=== PATIENT | male | born 1965 | race Caucasian/White ===

== ENCOUNTER 2016-07-01 09:51 | Inpatient (IN) | payer OTHER ==
[2016-07-01] MEDS ORDERED: HYDROcodone/APAP 5-325MG 1 EACH TAB PO STA (10:38)
[2016-07-01] MEDS ORDERED: IBUPROFEN 400 MG TAB PO STA (10:38)
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
[2016-07-01] MEDS ORDERED: HYDROmorphone 1 MG/ML 1 ML SYRINGE IM STA (12:09)
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
[2016-07-01] MEDS ORDERED: DOCUSATE 100 MG CAP PO PRN (13:48)
[2016-07-01] MEDS ORDERED: ONDANSETRON 4 MG/2 ML VIAL IVP PRN (13:48)
[2016-07-01] MEDS ORDERED: NALOXONE 0.4 MG/ML 1 ML VIAL IV PRN (13:48)
[2016-07-01] MEDS ORDERED: TEMAZEPAM 15 MG CAP PO PRN (13:48)
[2016-07-01] MEDS ORDERED: NICOTINE 21MG/24HR PATCH TRANSDERM STA (14:02)
[2016-07-01] MEDS: SODIUM CHLORIDE 0.9% 1,000 ML IV SCH ×2 (14:22→23:15)
[2016-07-01 14:36] LABS: Basophils # (A) 0.1 k/uL (0-0.2); Basophils % (A) 1 %; CH 33.4; CHCM 34.7; Eosinophils # (A) 0.4 k/uL (0-0.7); Eosinophils % (A) 5 %; HCT 47.8 % (39.0-53.0); HDW 2.41; HGB 16.1 gm/dL (13.0-17.5); Luc # (Auto) 0.17; Luc % (Auto) 2; Lymphocytes # (A) 1.8 k/uL (1.0-4.8); Lymphocytes % (A) 24 %; MCH 32.5 pg (25.0-35.0); MCHC 33.7 g/dL (31.0-37.0); MCV 96.7 fL (80.0-100.0); Mean Platelet Volume 7.8; Monocytes # (A) 0.6 k/uL (0-1.0); Monocytes % (A) 8 %; Neutrophils # (A) 4.5 k/uL (1.3-7.7); Neutrophils % (A) 61 %; RBC 4.94 m/uL (4.30-5.90); RDW 13.2 % (11.5-15.5); WBC 7.4 k/uL (3.8-10.6); WBC (Perox) 7.13
[2016-07-01 14:42] LABS: Prothrombin Time 10.5 sec (9.0-12.0)
[2016-07-01 14:45] LABS: Anion Gap 9 mmol/L; Blood Urea Nitrogen 19 mg/dL (9-20); Calcium 9.6 mg/dL (8.4-10.2); Carbon Dioxide 23 mmol/L (22-30); Chloride 109 mmol/L (98-107); Glucose 92 mg/dL (74-99); Non-African American GFR(MDRD) 55 (>60 ml/min/1.73 sqM); Potassium 5.3 mmol/L (3.5-5.1); Sodium 141 mmol/L (137-145)
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
[2016-07-01] MEDS: HYDROmorphone 1 MG/ML 1 ML SYRINGE IV PRN (16:24)
[2016-07-01] MEDS: HYDROcodone/APAP 7.5-325MG 1 EACH TAB PO PRN ×2 (17:55→23:24)
[2016-07-01] MEDS: FAMOTIDINE 20 MG TAB PO SCH (19:50)
[2016-07-02] MEDS: HYDROmorphone 1 MG/ML 1 ML SYRINGE IV PRN ×4 (02:38→20:26)
[2016-07-02] MEDS: HYDROcodone/APAP 7.5-325MG 1 EACH TAB PO PRN ×3 (05:30→14:02)
[2016-07-02] MEDS ORDERED: HYDROcodone/APAP 7.5-325MG 1 EACH TAB PO ONE (06:15)
[2016-07-02] MEDS: MELOXICAM 7.5 MG TAB PO SCH ×2 (09:05→19:19)
--- NOTE | 2016-07-02 09:31 | XR ---
EXAMINATION TYPE: XR chest 1V DATE OF EXAM: 07/02/2016 9:01 AM COMPARISON: Knees 01 July 2016 HISTORY: Preop, bilateral patellar fractures TECHNIQUE: Single frontal view of the chest is obtained. FINDINGS: There is no focal air space opacity, pleural effusion, or pneumothorax seen. The cardiac silhouette size is within normal limits. The osseous structures are intact. IMPRESSION: No acute process.
[2016-07-02] MEDS ORDERED: traMADol 50 MG TAB PO PRN (10:57)
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
[2016-07-02] MEDS: FAMOTIDINE 20 MG TAB PO SCH ×2 (14:02→20:26)
[2016-07-02] MEDS: SODIUM CHLORIDE 0.9% 1,000 ML IV SCH ×3 (17:13→20:31)
[2016-07-03] MEDS: HYDROmorphone 1 MG/ML 1 ML SYRINGE IV PRN ×7 (01:17→23:06)
[2016-07-03] MEDS: SODIUM CHLORIDE 0.9% 1,000 ML IV SCH ×4 (05:15→20:11)
[2016-07-03] MEDS ORDERED: DEXAMETHASONE SOD PHOSPHATE 10 MG/ML 1 ML VIAL IV ONE (06:47)
[2016-07-03] MEDS ORDERED: SCOPOLAMINE 1.5MG/72HR PATCH TRANSDERM ONE (06:47)
[2016-07-03] MEDS ORDERED: HYDROmorphone 1 MG/ML 1 ML SYRINGE IVP PRN (06:47)
[2016-07-03] MEDS ORDERED: LACTATED RINGERS 1,000 ML IV SCH (06:47)
[2016-07-03] MEDS: FAMOTIDINE 20 MG TAB PO SCH ×2 (07:07→17:55)
[2016-07-03 11:02] LABS: Anion Gap 12 mmol/L; Blood Urea Nitrogen 18 mg/dL (9-20); Calcium 9.2 mg/dL (8.4-10.2); Carbon Dioxide 21 mmol/L (22-30); Chloride 108 mmol/L (98-107); Glucose 96 mg/dL (74-99); Non-African American GFR(MDRD) 54 (>60 ml/min/1.73 sqM); Sodium 141 mmol/L (137-145)
[2016-07-03] MEDS ORDERED: IV FLUID CONTINUATION 1,000 ML IV ONE (14:22)
[2016-07-03] MEDS ORDERED: fentaNYL (PF) 50 MCG/ML 2 ML AMP IV ONE (14:31)
[2016-07-03] MEDS ORDERED: PROPOFOL 10 MG/ML 20 ML VIAL IV ONE (14:58)
[2016-07-03] MEDS ORDERED: MIDAZOLAM 2 MG/2 ML VIAL ONE (14:58)
[2016-07-03] MEDS ORDERED: fentaNYL (PF) 50 MCG/ML 2 ML AMP ONE (14:58)
[2016-07-03] MEDS ORDERED: SODIUM CHLORIDE 0.9% 50 ML with ceFAZolin 2,000 MG IV ONE ×2 (15:19)
[2016-07-03] MEDS ORDERED: LACTATED RINGERS 1,000 ML IV ONE (15:25)
[2016-07-03] MEDS ORDERED: ceFAZolin 1,000 MG in SODIUM CHLORIDE 0.9% 1,000 ML IRRIGATION ONE (15:26)
[2016-07-03] MEDS ORDERED: MAGNESIUM HYDROXIDE 2,400 MG/10 ML CUP PO PRN (16:27)
[2016-07-03] MEDS ORDERED: HYDROcodone/APAP 7.5-325MG 1 EACH TAB PO PRN (16:27)
[2016-07-03] MEDS ORDERED: hydrOXYzine PAMOATE 25 MG CAP PO PRN (16:27)
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
--- NOTE | 2016-07-03 16:51 | XR ---
EXAMINATION TYPE: XR knee limited RT DATE OF EXAM: 07/03/2016 4:46 PM COMPARISON: 07/01/2016 HISTORY: 51-year-old male evaluation for postoperative abnormality and alignment TECHNIQUE: 2 views FINDINGS: In the right knee, there appears to be interval removal of bony fragments previously displaced and di stracted from the lower pole of the patella. There is anterior soft tissue swelling and soft tissue g as as well as intra-articular air and joint effusion relating to recent operation. No other acute fra cture or dislocation seen. IMPRESSION: Postoperative changes along the anterior knee and apparent removal of displaced and distracted bone f ragments from the lower patellar pole.
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
[2016-07-03] MEDS: NICOTINE 21MG/24HR PATCH TRANSDERM SCH (18:58)
[2016-07-03] MEDS: HYDROcodone/APAP 7.5-325MG 1 EACH TAB PO PRN (20:10)
[2016-07-03] MEDS: SENNOSIDES-DOCUSATE SODIUM 1 EACH TAB PO SCH (20:10)
[2016-07-03] MEDS: LORazepam 2 MG/ML SYRINGE IV PRN (23:13)
[2016-07-03] MEDS: ceFAZolin 2 GM in SODIUM CHLORIDE 0.9% 100 ML IVPB SCH (23:16)
[2016-07-04] MEDS: HYDROcodone/APAP 7.5-325MG 1 EACH TAB PO PRN ×3 (02:25→15:09)
[2016-07-04] MEDS: HYDROmorphone 1 MG/ML 1 ML SYRINGE IV PRN ×4 (02:26→18:39)
[2016-07-04] MEDS: SODIUM CHLORIDE 0.9% 1,000 ML IV SCH ×3 (07:37→16:21)
[2016-07-04] MEDS: ceFAZolin 2 GM in SODIUM CHLORIDE 0.9% 100 ML IVPB SCH (07:50)
[2016-07-04] MEDS: NICOTINE 21MG/24HR PATCH TRANSDERM SCH (07:52)
[2016-07-04] MEDS: ASPIRIN 325 MG TAB PO SCH ×2 (07:52→21:54)
[2016-07-04] MEDS: FAMOTIDINE 20 MG TAB PO SCH ×2 (07:52→20:10)
[2016-07-04] MEDS: LORazepam 2 MG/ML SYRINGE IV PRN (08:00)
[2016-07-04 08:26] LABS: Basophils % (A) 0 %; CH 33.4; CHCM 34.5; Eosinophils # (A) 0.1 k/uL (0-0.7); Eosinophils % (A) 1 %; HCT 42.5 % (39.0-53.0); HDW 2.34; HGB 13.9 gm/dL (13.0-17.5); Luc # (Auto) 0.17; Luc % (Auto) 2; Lymphocytes # (A) 1.1 k/uL (1.0-4.8); Lymphocytes % (A) 14 %; MCH 31.7 pg (25.0-35.0); MCHC 32.6 g/dL (31.0-37.0); MCV 97.3 fL (80.0-100.0); Mean Platelet Volume 7.8; Monocytes % (A) 12 %; Neutrophils # (A) 5.9 k/uL (1.3-7.7); Neutrophils % (A) 71 %; RBC 4.37 m/uL (4.30-5.90); RDW 12.8 % (11.5-15.5); WBC 8.3 k/uL (3.8-10.6); WBC (Perox) 7.88
--- NOTE | 2016-07-04 12:12 | P.PN ---
Subjective Principal diagnosis: Status post partial patellectomy with patellar tendon repair right knee Patient is seen today resting in his hospital bed. He is in no acute distress at time, his pain medication seems to be working well. She's utilizing the hinge knee brace on the left knee. Knee immobilizer is in place on the right knee. He denies any headaches, lightheadedness, chest pain, shortness of breath. Objective - Vital Signs Vital signs: Vital Signs Temp 97.8 F 07/04/16 07:28 Pulse 71 07/04/16 07:28 Resp 16 07/04/16 07:28 BP 124/73 07/04/16 07:28 Pulse Ox 98 07/04/16 07:28 Intake & Output 07/03/16 07/04/16 07/04/16 18:59 06:59 18:59 Intake Total 2050 1040 Output Total 30 650 Balance 2020 390 Intake: IV 2050 800 Sodium Chloride 0.9% 1, 800 800 000 ml @ 100 mls/hr IV . Q10H [facility]LEN[facility] Rx#:[id number] Oral 240 Output: Urine 650 Estimated Blood Loss 30 Other: Voiding Method Urinal Urinal # Voids 600 1 - Exam Right lower extremity: Initial postoperative bandage is removed. Incision is clean, dry and intact. Steri-Strips are in good position. Plantar flexion, dorsiflexion, EHL, FHL are intact. Sensory exam light touch throughout the extremities intact. Calf is soft, no tenderness with palpation. Cap refills less than 3 seconds. - Labs CBC & Chem 7: 07/04/16 07:50 07/03/16 10:30 Assessment and Plan Plan: Assessment: 1. Postop day #1 status post partial patellectomie with patellar tendon repair right knee Plan: 1. Pain control, continue supportive oral medications 2. Nonweightbearing bilateral legs, utilize hinge knee brace on left knee. Hinge knee brace was ordered for the right knee also, locked in 0 of extension 3. GI and DVT prophylaxis, continue aspirin 325 mg twice a day 4. Daily dressing changes/ice and elevate 5. Medical recommendations 6. Discharge planning: Patient will likely be discharged tomorrow Time with Patient: Less than 30
[2016-07-04] MEDS: SENNOSIDES-DOCUSATE SODIUM 1 EACH TAB PO SCH (20:10)
[2016-07-04] MEDS ORDERED: ALPRAZolam 0.25 MG TAB PO PRN (23:20)
[2016-07-05] MEDS: ASPIRIN 325 MG TAB PO SCH (05:25)
[2016-07-05 07:53] LABS: Basophils % (A) 0 %; CH 33.2; CHCM 34.4; Eosinophils # (A) 0.1 k/uL (0-0.7); Eosinophils % (A) 1 %; HCT 41.8 % (39.0-53.0); HDW 2.31; HGB 13.9 gm/dL (13.0-17.5); Luc # (Auto) 0.18; Luc % (Auto) 2; Lymphocytes % (A) 11 %; MCH 32.3 pg (25.0-35.0); MCHC 33.3 g/dL (31.0-37.0); MCV 96.9 fL (80.0-100.0); Mean Platelet Volume 7.5; Monocytes # (A) 0.9 k/uL (0-1.0); Monocytes % (A) 10 %; Neutrophils % (A) 76 %; RBC 4.31 m/uL (4.30-5.90); RDW 12.5 % (11.5-15.5); WBC 9.2 k/uL (3.8-10.6); WBC (Perox) 9.27
[2016-07-05 07:58] VITALS: BP 120/70; PULSE 76; RESP 18; TEMP 97.8
[2016-07-05 07:59] LABS: Anion Gap 11 mmol/L; Blood Urea Nitrogen 15 mg/dL (9-20); Calcium 9.4 mg/dL (8.4-10.2); Carbon Dioxide 23 mmol/L (22-30); Chloride 105 mmol/L (98-107); Glucose 120 mg/dL (74-99); Non-African American GFR(MDRD) 57 (>60 ml/min/1.73 sqM); Sodium 139 mmol/L (137-145)
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
[2016-07-05] MEDS: SODIUM CHLORIDE 0.9% 1,000 ML IV SCH (09:28)
[2016-07-05] MEDS: FAMOTIDINE 20 MG TAB PO SCH (09:30)
[2016-07-05] MEDS: NICOTINE 21MG/24HR PATCH TRANSDERM SCH (09:30)
--- NOTE | 2016-07-05 09:38 | P.PN ---
Subjective Principal diagnosis: Status post partial patellectomy with patellar tendon repair right knee Patient is seen today resting in his hospital bed. He is in no acute distress at time, his pain medication seems to be working well. She's utilizing the hinge knee brace on the bilateral knees. He denies any headaches, lightheadedness, chest pain, shortness of breath. Objective - Vital Signs Vital signs: Vital Signs Temp 97.8 F 07/05/16 07:00 Pulse 76 07/05/16 07:00 Resp 18 07/05/16 07:00 BP 120/70 07/05/16 07:00 Pulse Ox 100 07/05/16 07:00 Intake & Output 07/04/16 07/05/16 07/05/16 18:59 06:59 18:59 Intake Total 100 400 Output Total 200 1700 Balance -100 -1300 Intake: Intake, IV Titration 100 400 Amount Sodium Chloride 0.9% 50 400 ml As IV .STK-MED ONE with ceFAZolin 2,000 mg Rx#:[id number] ceFAZolin 2 gm In Sodium 100 Chloride 0.9% 100 ml @ 100 mls/hr IVPB Q8HR [facility] Rx#:[id number] Output: Urine 200 1700 Other: Voiding Method Urinal Urinal # Voids 1 - Exam Right lower extremity: Incision is clean, dry and intact. Steri-Strips are in good position. Plantar flexion, dorsiflexion, EHL, FHL are intact. Sensory exam light touch throughout the extremities intact. Calf is soft, no tenderness with palpation. Cap refills less than 3 seconds. - Labs CBC & Chem 7: 07/05/16 07:03 07/05/16 07:00 Labs: Abnormal Lab Results - Last 24 Hours (Table) 07/05/16 Range/Units 07:00 Creatinine 1.31 H (0.66-1.25) mg/dL Glucose 120 H (74-99) mg/dL Assessment and Plan Plan: Assessment: 1. Postop day #2 status post partial patellectomy with patellar tendon repair right knee Plan: 1. Pain control, continue supportive oral medications 2. Nonweightbearing bilateral legs, utilize hinge knee brace on bilateral knees 3. GI and DVT prophylaxis, continue aspirin 325 mg twice a day 4. Daily dressing changes/ice and elevate 5. Medical recommendations 6. Discharge planning: Patient will be discharged home today Time with Patient: Less than 30
--- NOTE | 2016-07-05 11:58 | PN ---
This 51-year-old gentleman admitted with comminuted right inferior patellar fracture underwent a partial patellectomy right knee with the patellectomy repair by Dr. Francisco. No chest pain. No palpitations. No fever. Patient had Stage III renal failure. On exam, alert and oriented x3. Pulse is 77, blood pressure 119/60, respiratory rate 16, temperature 98.2, pulse ox 98% on room air. HEENT: Conjunctivae normal. NECK: No jugular venous distention. CARDIOVASCULAR: S1, S2 muffled. RESPIRATORY: Breath sounds diminished at the bases. No rhonchi. No crackles. ABDOMEN: Soft. Nontender. Legs: Status post surgery. CENTRAL NERVOUS SYSTEM: No focal deficits. LABS: CBC noted. Creatinine is 1.38. ASSESSMENT: 1. Comminuted right inferior pole patella fracture status post partial patellectomy and repair. 2. Chronic kidney disease, stage III secondary to inflammatory disease ( ) drugs. 3. Hyperkalemia. 4. History of nicotine dependence. 5. Mild hyperkalemia present on admission. RECOMMENDATIONS AND DISCUSSION: This 51-year-old gentleman who presented with multiple complex medical issues, at this time, I recommend to continue current medications, continue symptomatic treatment. Avoid NSAIDS and nephrotoxic medications. Repeat labs tomorrow. Continue hydration. Further recommendations to follow. DVT prophylaxis. Closely follow with orthopedic surgery.
[2016-07-05] MEDS ORDERED: INFLUENZA VACCINE (3YR+) 60 MCG/0.5 ML SYRINGE IM ONE (12:00)
[2016-07-05] MEDS ORDERED: PNEUMOCOCCAL VACC-PNEUMOVAX 23 25 MCG/0.5 ML VIAL IM ONE (12:01)
--- NOTE | 2016-07-05 22:09 | PN ---
DATE OF SERVICE: 07/05/2016 This 51-year-old gentleman admitted with a complaint of right inferior patellar fracture and underwent a partial patellectomy and repair. No chest pain or palpitations. No fever. The renal function appears to be stable. On exam, alert and oriented x3. Pulse 76, blood pressure 120/70, respirations 18, temperature 97.8. HEENT: Conjunctivae normal. NECK: No jugular venous distension. CARDIOVASCULAR: S1 and S2 muffled. RESPIRATORY: Breath sounds diminished in the bases. No rhonchi. No crackles. ABDOMEN: Soft, nontender. LEGS: Right knee status post surgery. NERVOUS SYSTEM: No focal deficits. LABS: Creatinine 1.31. ASSESSMENT: 1. Comminuted right inferior pole of patella fracture, status post partial patellectomy and repair. 2. Chronic kidney disease stage 3 secondary to nonsteroidal anti-inflammatory drugs, stable. 3. Hyperkalemia history. 4. History of nicotine dependence. RECOMMENDATIONS AND DISCUSSION: In this 51-year-old gentleman who presented with multiple issues, at this time I recommend continuing with home medications. Follow up closely with primary physician. Avoid NSAIDs and continue to monitor. Further recommendations to follow.
== END 2016-07-05 13:45 | disposition home or self-care (01) | DRG 488 ==
LOC: EC 09:51 → 5MS5E 13:51
PROVIDERS: ADMIT Orthopaedic Surgery; ATTEND Orthopaedic Surgery
PROC: 2W3RX3Z Immobilization of Left Lower Leg using Brace (ICD-10-PCS; 2016-07-01)
PROC: 0LQQ0ZZ Repair Right Knee Tendon, Open Approach (ICD-10-PCS; 2016-07-03)
PROC: 3E0234Z Introduction of Serum, Toxoid and Vaccine into Muscle, Percutaneous Approach (ICD-10-PCS; 2016-07-03)
PROC: 3E0234Z Introduction of Serum, Toxoid and Vaccine into Muscle, Percutaneous Approach (ICD-10-PCS; 2016-07-03)
PROC: 0QBD0ZZ Excision of Right Patella, Open Approach (ICD-10-PCS; principal; 2016-07-03 15:00)
DX: S82.041A Displaced comminuted fracture of right patella, initial encounter for closed fracture (principal); S82.002A Unspecified fracture of left patella, initial encounter for closed fracture; E87.5 Hyperkalemia; N18.3 Chronic kidney disease, stage 3 (moderate); S76.811A Strain of other specified muscles, fascia and tendons at thigh level, right thigh, initial encounter; R00.1 Bradycardia, unspecified; T39.395A Adverse effect of other nonsteroidal anti-inflammatory drugs [NSAID], initial encounter; M54.2 Cervicalgia; M54.5 Low back pain; F17.210 Nicotine dependence, cigarettes, uncomplicated; Z23 Encounter for immunization; Z79.1 Long term (current) use of non-steroidal anti-inflammatories (NSAID); Z71.6 Tobacco abuse counseling; V57.5XXA Driver of pick-up truck or van injured in collision with fixed or stationary object in traffic accident, initial encounter; Y92.410 Unspecified street and highway as the place of occurrence of the external cause
CPT/HCPCS: 36415; 71010; 72125; 80048; 85025; 85610; 90686; 90732; 93005; 96372; 99285

== ENCOUNTER → 2018-10-02 | Outpatient (CLI) | payer OTHER ==
--- NOTE | 2018-10-02 15:18 | US ---
EXAMINATION TYPE: US kidneys/renal and bladder DATE OF EXAM: 10/02/2018 COMPARISON: NONE CLINICAL HISTORY: N26.1 Atrophy of kidney (terminal). EXAM MEASUREMENTS: Right Kidney: 12.0 x 6.2 x 4.9 cm Left Kidney: 6.6 x 3.7 x 2.9 cm Right Kidney: No hydronephrosis. Cystic area visualized medial measuring 1.1 x 0.8 x 0.7 cm Left Kidney: Measuring small. No hydronephrosis. Cystic area visualized measuring 1.0 x 0.8 x 1.0 cm. Cortical renal thinning is seen. Bladder: wnl as visualized, not fully distended, however patient states they area very full Bilateral Jets seen: No There is no evidence for hydronephrosis at this point in time. No nephrolithiasis is seen. The urin [place]ilton bladder is suboptimally visualized. IMPRESSION: 1. Left cortical renal thinning and left renal atrophy. 2. Simple appearing bilateral renal cysts. 3. No hydronephrosis of either kidney.
== END ==
LOC: RADUSWWP 14:45
DX: N26.1 Atrophy of kidney (terminal) (principal); N28.1 Cyst of kidney, acquired
CPT/HCPCS: 76770

== ENCOUNTER → 2019-01-01 | Outpatient (CLI) | payer OTHER ==
--- NOTE | 2019-01-01 11:00 | US ---
EXAMINATION TYPE: US renal artery duplex complet DATE OF EXAM: 01/01/2019 COMPARISON: Renal US 10/02/2018 CLINICAL HISTORY: N28.1 ATROPHY OF KIDNEYS. Patient denies HTN; prior smoker x 20 years MEASUREMENTS: RENAL SIZE: Rt Kidney: 11.2 x 5.0 x 4.4cm Lt Kidney: 6.5 x 3.7 x 3.7cm RESISTANCE INDEX Right: 0.59 Left: 0.56 RA/AO RATIO (< 3.5 ) Right: 2.5 Left: 5.3 RA VELOCITY ( < 180 cm/s) Right: 166.5 cm/s mid Left: 315cm/s prox Aorta: size is wnl. Intimal wall thickening is noted mid and distal aorta. Abnormally elevated Left R A/AO ratio. No evident abdominal aortic aneurysm. Right kidney: Extrarenal renal pelvis is noted in several views. No hydronephrosis or masses are seen . There is some more elevated PSV is noted mid right renal artery. Waveform analysis shows brisk syst olic upstroke, diastolic low resistance flow Left kidney: small size. Central sinus fluid is noted mid and noted as hypoechoic area. Left renal a rtery: abnormally elevated PSV proximal left renal artery, there is loss of diastolic window, spectra l broadening. Poor visualization of left renal artery color flow is noted from aorta to to hilum even though patient was assessed in supine and coronal views. Grayscale, color Doppler, spectral Doppler imaging performed. IMPRESSION: Findings suggest renal artery stenosis on the left, atrophic left kidney,
== END | disposition home or self-care (01) ==
LOC: RADUSWWP 07:59
DX: N26.1 Atrophy of kidney (terminal) (principal)
CPT/HCPCS: 93975